=== PATIENT | female | born 1940 | race Caucasian/White ===

== ENCOUNTER → 2017-01-01 | Outpatient (CLI) | payer OTHER | LOC: FIMAGING 15:11 | PROVIDERS: ATTEND Family Medicine | DX: R05 Cough (principal) ==

== ENCOUNTER → 2017-01-24 | Outpatient (CLI) | payer OTHER | LOC: FIMAGING 07:08 | PROVIDERS: ATTEND Family Medicine | DX: N93.8 Other specified abnormal uterine and vaginal bleeding (principal); D25.2 Subserosal leiomyoma of uterus ==

== ENCOUNTER 2017-02-03 15:02 | Emergency (ER) | payer OTHER ==
[2017-02-03] MEDS ORDERED: IBUPROFEN 600 MG TAB PO ONE (15:23)
[2017-02-03 15:24] VITALS: BP 183/87; PULSE 103; RESP 18; TEMP 98.6; O2SAT 97
--- NOTE | 2017-02-03 15:26 | EDPHY ---
H & P Time Seen by Provider: 02/03/17 15:05 HPI/ROS: HPI Sore throat, earache. 76-year-old female by private vehicle. This patient reports she developed a sore throat on . She reports that this persisted through the day and into the evening. She reports that she had continued sore throat yesterday and then developed pain in her left ear yesterday evening followed by a diffuse rash on the left side of her face involving her ear and her left upper cheek bone area. She denies vesicles with the rash. She has not had a fever. No cough. Denies any drainage from the ear. No barotrauma. No difficulty swallowing. No voice changes or difficulty breathing. ROS: Constitutional: No fever, no chills. No weakness. Eyes: No discharge. No changes in vision. ENT: As above. No nasal congestion or rhinorrhea. Respiratory: No cough. No shortness of breath. Cardiac: No chest pain, no palpitations. Gastrointestinal: No abdominal pain, no vomiting, no diarrhea. Genitourinary: No hematuria. No dysuria or increased frequency with urination. Musculoskeletal: No back pain. No neck pain. No myalgias or arthralgias. Skin: As above. Neurological: No headache. No focal weakness or altered sensation. Past medical history: Hypothyroidism. Appendectomy. Primary care physician is Dr. Ghosh. Social history: Here by herself. Nonsmoker. No alcohol. Physical Exam: General Appearance: Alert, no distress. This patient is responding to questions appropriately and in full sentences. This patient appears well- hydrated and well-nourished. Eyes: Pupils equal and round no pallor or injection. No lid edema, erythema or injection. ENT, Mouth: Mucous membranes are moist. The pharyngeal tissues are unremarkable. No edema or swelling. No asymmetry suggestive of abscess. No erythema or exudates. No voice changes. No stridor on auscultation of her neck. The right external auditory canal and tympanic membrane are normal. The left external auditory canal is mildly edematous. The left tympanic membrane is bulging with loss of landmarks a pus pocket behind it and some hemorrhage. I do not appreciate any vesicles. No swelling, tenderness or edema or erythema noted involving the posterior auricular tissues. Respiratory: There are no retractions, lungs are clear to auscultation with good air movement bilaterally. Cardiovascular: Regular rate and rhythm. No tachycardia. No murmur. Neurological: Motor sensory function is grossly intact. Cranial nerves are normal. Gait is normal. Skin: Warm and dry, diffuse faintly erythematous rash involving the left or radicular tissues and maxilla. She is placed baking soda on this for treatment at home. I do not appreciate any vesicles. Musculoskeletal: Neck is supple and nontender. No cervical, submental, submandibular lymphadenopathy. No pain on flexion of the neck. Extremities are symmetrical. All joints range without pain or impingement. Psychiatric: No agitation. No depression. Database: EKG: Imaging: Procedures: Emergency department course: Vital signs reviewed. She is hypertensive and mildly tachycardic with a heart rate of 103 in triage. Temperature is 37.0degrees orally. Differential diagnosis includes herpes zoster oticus, otitis media, otitis externa, early facial cellulitis. Medication allergies reviewed. She was given 500 mg of oral amoxicillin as well as Ciprodex otic drops administered to her left ear. She was also given 600 mg of ibuprofen. 3:50 p.m., patient re-evaluated. No tachycardia. She does feel comfortable going home and can easily return to the emergency department if needed. Plan will be to have her follow up with me tomorrow afternoon for recheck here. I will prescribe her Vicodin for additional pain management as well as the above medications. She is in agreement with this plan and feels comfortable going home. She understands for follow-up here in the emergency department tomorrow for recheck. All of her questions were answered. She was discharged in good condition. Differential Diagnosis: The differential diagnosis on this patient includes but is not limited to acute otitis media, otitis externa, early facial cellulitis, herpes zoster/shingles. Erysipelas, ruptured tympanic membrane, barotrauma, malignant otitis media unlikely. This represents a partial list of diagnoses considered. These considerations are based on history, physical exam, past history, reassessment and diagnostic testing. Smoking Status: Never smoked Constitutional: Initial Vital Signs Temperature (C) 37 C 02/03/17 15:07 Heart Rate 103 H 02/03/17 15:07 Respiratory Rate 18 02/03/17 15:07 Blood Pressure 183/87 H 02/03/17 15:07 O2 Sat (%) 97 02/03/17 15:07 O2 Delivery Mode Room Air Allergies/Adverse Reactions: codeine Allergy (Verified 02/03/17 15:26) hornet venom Allergy (Verified 02/03/17 15:26) Home Medications: Medication Instructions Recorded Prenpro 08/31/15 Synthroid 08/31/15 Amoxicillin Trihydrate 500 mg PO Q6 #28 cap 02/03/17 [Amoxicillin 500mg cap] Medical Decision Making - Data Points Laboratory Results: 02/03/17 02/03/17 Unknown 15:27 Group A Strep Screen NEGATIVE (NEGATIVE) Group A Strep DNA Pending Departure - Departure Disposition: Home, Routine, Self-Care Clinical Impression: Pharyngitis, Otitis media Condition: Good Instructions: Pharyngitis (ED), Otitis Media (ED) Additional Instructions: Read and follow provided instructions. Return to the emergency department tomorrow for recheck as discussed. Take medication as prescribed through entire course of treatment. Ciprodex otic drops: 4 drops to left ear twice daily for 5-7 days. Ibuprofen dosin mg every 6 hours with meals for the next 3 days only. [place]/Percocet dosin-2 every 4-[address] for [address] not drive on this medication. Return to the emergency department immediately for worsening pain, facial swelling, fever, vomiting or other serious concerns. Referrals: NONE *PRIMARY CARE P,. [Primary Care Provider] - As per Instructions Prescriptions: Amoxicillin Trihydrate [Amoxicillin 500mg cap] 500 mg PO Q6 #28 cap
[2017-02-03] MEDS ORDERED: CIPROFLOXACIN HCL/DEXAMETH 7.5 ML OTIC DROPS ONE (15:36)
[2017-02-03] MEDS ORDERED: HYDROCOD/APAP 5/325 PREPACK#6 BTL TAKEHOME ONE (15:38)
[2017-02-03] MEDS ORDERED: CIPROFLOXACIN HCL/DEXAMETH 7.5 ML OTIC DROPS LEFTEAR ONE (15:44)
[2017-02-03] MEDS ORDERED: CIPROFLOXACIN HCL/DEXAMETH 7.5 ML OTIC DROPS LEFTEAR SCH (21:00)
== END 2017-02-03 16:15 | disposition home or self-care (01) ==
LOC: CED 15:02
DX: J02.9 Acute pharyngitis, unspecified (principal); H66.92 Otitis media, unspecified, left ear
CPT/HCPCS: 87880-PO

== ENCOUNTER 2017-02-04 15:28 | Emergency (ER) | payer OTHER ==
[2017-02-04 15:49] VITALS: RESP 16; O2SAT 93
[2017-02-04] MEDS ORDERED: NS 500 ML IV ONE (15:54)
[2017-02-04] MEDS ORDERED: IOPAMIDOL (ISOVUE-300) 100 ML BTL ONE (16:12)
--- NOTE | 2017-02-04 16:13 | EDPHY ---
H & P Time Seen by Provider: 02/04/17 15:39 HPI/ROS: HPI Left ear pain and neck pain. Recheck visit. A 76-year-old female by private vehicle. I saw this patient yesterday. Please see my note from February 03. She returns to the emergency department for recheck by myself as planned. She complains of continued severe left ear pain with radiation into the left lateral neck. She has been taking her prescribed medications which include Ciprodex otic and amoxicillin. She denies fever. She has had no voice changes or difficulty swallowing. She does report the pain in her left lateral neck extending down from her left ear is worse with chewing and swallowing. No difficulty breathing. She reports she has a primary care appointment with her physician Dr. Pinto tomorrow at noon. ROS: Constitutional: No fever, no chills. No weakness. Eyes: No discharge. No changes in vision. ENT: No sore throat. No nasal congestion or rhinorrhea. As above. Respiratory: No cough. No shortness of breath. Cardiac: No chest pain, no palpitations. Gastrointestinal: No abdominal pain, no vomiting, no diarrhea. Genitourinary: No hematuria. No dysuria or increased frequency with urination. Musculoskeletal: No back pain. No neck pain. No myalgias or arthralgias. Skin: No rashes. Neurological: No headache. No focal weakness or altered sensation. Past medical history: Appendectomy, hypothyroidism. Social history: Lives by herself. She is a electroplating technician. Nonsmoker. No alcohol. Physical Exam: General Appearance: Her exam is essentially unchanged from yesterday. Alert, no distress. Talkative. This patient is responding to questions appropriately and in full sentences. This patient appears well-hydrated and well-nourished. Eyes: Pupils equal and round no pallor or injection. No lid edema, erythema or injection. ENT, Mouth: Mucous membranes are moist. The pharyngeal tissues are unremarkable. No edema or swelling. No asymmetry suggestive of abscess. No erythema or exudates. The right external auditory canal and right tympanic membrane are normal. The left external auditory canal is less inflamed than it was yesterday. The left tympanic membrane remains bulging with hemorrhage and pus behind it. Her pain is exacerbated with any manipulation of the auricular tissues. She has a diffuse mildly erythematous rash with some faint and edema involving the helix and the external auricular tissues. This faint erythema also involves the lateral soft tissues of the neck as well as extension into the left lateral facial structures, the maxilla and mandibular area and temporal area of her forehead. No vesicles are noted. Respiratory: There are no retractions, lungs are clear to auscultation with good air movement bilaterally. Cardiovascular: Regular rate and rhythm. No murmur. Gastrointestinal: Abdomen is soft and nontender, no masses, bowel sounds normal. No focal tenderness at McBurney's point. No Owens sign. Neurological: Motor sensory function is grossly intact. Cranial nerves are normal. Gait is normal. Skin: Warm and dry, no rashes. Musculoskeletal: Neck is supple and nontender. Extremities are symmetrical. All joints range without pain or impingement. Psychiatric: No agitation. No depression. Database: EKG: Imaging: Procedures: Emergency department course: Vital signs reviewed. She is afebrile. She is hypertensive that she was yesterday. I discussed imaging. She will be evaluated for malignant otitis externa as well as possible abscess formation with CT imaging, contrast enhanced , of the head and the neck. She endorses this plan. An IV was placed. She was started on IV normal saline with 500 cc to be given over the next hour. Blood cultures have been taken as well as basic blood work including ESR ordered. She will be given Toradol IV pending a normal creatinine. She wants to avoid narcotics. 4:20 p.m., patient re-evaluated. At this time she is declining pain medication. 5:35 p.m., spoke with on-call ENT Dr. Arvizu. Case was discussed in detail with him including laboratory work and imaging. He advises to stay the course with continued oral amoxicillin and Ciprodex drops. He does not advise at this time starting her on Valtrex for possible zoster. He feels as well that this is less likely. The patient does have a follow-up appointment scheduled with her primary care physician Dr. Tracy at noon tomorrow. He recommends that she see Dr. Pinto and if needed he can see her in the office as well if Dr. Burton feels this is necessary. 5:40 p.m., patient re-evaluated. Her is in the room at this time. Results of blood work, CT scan and my conversation with Dr. Arvizu discussed with her and her . Plan for continued therapy as initiated yesterday discussed. She will follow up with Dr. Tracy as above. She is aware that I spoke with Dr. Arvizu and that Dr. Arvizu has her name will be happy to see her if Dr. Tracy and feels this is necessary. Return to emergency department precautions again reviewed with her in detail. All of her questions were answered. She was discharged in good condition. Differential Diagnosis: The differential diagnosis on this patient includes but is not limited to otitis media, otitis externa, malignant otitis externa, zoster, facial cellulitis. This represents a partial list of diagnoses considered. These considerations are based on history, physical exam, past history, reassessment and diagnostic testing. Smoking Status: Never smoked Constitutional: Initial Vital Signs Temperature (C) 37 C 02/04/17 15:45 Heart Rate 90 02/04/17 15:45 Respiratory Rate 16 02/04/17 15:45 Blood Pressure 172/100 H 02/04/17 15:45 O2 Sat (%) 93 02/04/17 15:45 O2 Delivery Mode Room Air Allergies/Adverse Reactions: codeine Allergy (Verified 02/04/17 15:48) hornet venom Allergy (Verified 02/04/17 15:48) Home Medications: Medication Instructions Recorded Prenpro 08/31/15 Synthroid 08/31/15 Amoxicillin Trihydrate 500 mg PO Q6 #28 cap 02/03/17 [Amoxicillin 500mg cap] Medical Decision Making - Diagnostics Imaging Results: Imaging Impressions Head CT 02/04/17 16:04 Impression: Normal brain. No evidence of empyema or aggressive infectious process involving the skull base. Findings discussed with emergency department physician, Joe Perez MD on February 04, 2017 at 5:[address] 02/04/17 16:04 Impression: No aggressive inflammatory process. Specifically, no evidence of osteomyelitis or bony destruction of the skull base. Findings discussed with emergency department physician, Joe Perez MD on February 04, 2017 at 5:20 p.m. - Data Points Laboratory Results: Laboratory Results 02/04/17 16:11 02/04/17 16:11 02/04/17 02/04/17 16:11 16:11 WBC 6.73 10^3/uL 10^3/uL (3.80-9.50) RBC 3.97 10^6/uL L 10^6/uL (4.18-5.33) Hgb 13.0 g/dL g/dL (12.6-16.3) Hct 38.9 % % (38.0-47.0) MCV 98.0 fL fL (81.5-99.8) MCH 32.7 pg pg (27.9-34.1) MCHC 33.4 g/dL g/dL (32.4-36.7) RDW 14.5 % % (11.5-15.2) Plt Count 226 10^3/uL 10^3/uL (150-400) MPV 9.9 fL fL (8.7-11.7) Neut % (Auto) 66.0 % % (39.3-74.2) Lymph % (Auto) 20.5 % % (15.0-45.0) [place] % (Auto) 10.4 % % (4.5-13.0) Eos % (Auto) 1.5 % % (0.6-7.6) Baso % (Auto) 1.3 % % (0.3-1.7) Nucleat RBC Rel Count 0.0 % % (0.0-0.2) Absolute Neuts (auto) 4.44 10^3/uL 10^3/uL (1.70-6.50) Absolute Lymphs (auto) 1.38 10^3/uL 10^3/uL (1.00-3.00) Absolute Monos (auto) 0.70 10^3/uL 10^3/uL (0.30-0.80) Absolute Eos (auto) 0.10 10^3/uL 10^3/uL (0.03-0.40) Absolute Basos (auto) 0.09 10^3/uL 10^3/uL (0.02-0.10) Absolute Nucleated RBC 0.00 10^3/uL 10^3/uL (0-0.01) Immature Gran % 0.3 % % (0.0-1.1) Immature Gran # 0.02 10^3/uL 10^3/uL (0.00-0.10) ESR 17 MM/HR MM/HR (0-30) Sodium 139 mEq/L mEq/L (134-144) Potassium 4.4 mEq/L mEq/L (3.5-5.2) Chloride 102 mEq/L mEq/L (97-110) Carbon Dioxide 24 mEq/l mEq/l (22-31) Anion Gap 13 mEq/L mEq/L (8-16) BUN 14 mg/dL mg/dL (7-23) Creatinine 0.8 mg/dL mg/dL (0.6-1.0) Estimated GFR > 60 Glucose 85 mg/dL mg/dL (70-100) Calcium 9.2 mg/dL mg/dL (8.5-10.4) Medications Given: Discontinued Medications Hydrocodone Bitart/Acetaminophen ([place] 5/325mg Prepack#6) 1 btl TAKEHOME EDNOW ONE Stop: 02/04/17 17:58 Last Admin: 02/04/17 18:02 Dose: 1 btl Hydrocodone Bitart/Acetaminophen ([place] 5/325mg Prepack#6) 1 btl TAKEHOME EDNOW ONE Stop: 02/04/17 17:59 Last Admin: 02/04/17 18:03 Dose: Not Given Amoxicillin (Amoxicillin) 500 mg PO EDNOW ONE PRN Reason: Protocol Stop: 02/04/17 17:02 Last Admin: 02/04/17 17:12 Dose: 500 mg Sodium Chloride (Ns) 500 mls @ 0 mls/hr IV ONCE ONE; Wide Open PRN Reason: Protocol Stop: 02/04/17 15:55 Last Admin: 02/04/17 16:26 Dose: 500 mls Ketorolac Tromethamine (Toradol) 30 mg IVP EDNOW ONE Stop: 02/04/17 16:58 Last Admin: 02/04/17 17:01 Dose: 30 mg Departure - Departure Disposition: Home, Routine, Self-Care Clinical Impression: Otitis media of left ear Condition: Good Instructions: Hydrocodone/Acetaminophen (By mouth), Otitis Media (ED) Additional Instructions: Read and follow provided instructions. Follow-up with your primary care physician Dr. Tracy as scheduled tomorrow at 12 noon. I spoke with ENT physician Dr. Arvizu. He has your name. If doctor Blair feels that you should be seen by him he is happy to see you in his office as well. Continue taking antibiotics as prescribed through entire course of treatment. Ibuprofen dosin mg every 6 hours with meals for the next 3 days only. You can continue taking ibuprofen starting tomorrow morning. [place]/Percocet dosin-2 every 4-6 hours for [address] not drive on this medication. Return to the emergency department for worsening symptoms fever, worsening facial swelling, worsening pain or other serious concerns. Have Dr. Tracy evaluate your blood pressure as well. Referrals: Jacobo Tracy MD [Primary Care Provider] - As per Instructions Luis Arvizu MD [Medical Doctor] - As per Instructions
[2017-02-04 16:19] LABS: % IMMATURE GRANULYOCYTES 0.3 % (0.0-1.1); ABSOLUTE IMMATURE GRANULOCYTES 0.02 10^3/uL (0.00-0.10); ADD DIFF? NO; ADD MORPH? NO; ADD SCAN? NO; ATYPICAL LYMPHOCYTE FLAG 30 (0-99); FRAGMENT RBC FLAG 0 (0-99); HEMATOCRIT 38.9 % (38.0-47.0); LEFT SHIFT FLG 0 (0-99); LIPEMIA HEMOLYSIS FLAG 80 (0-99); MEAN CELL HEMOGLOBIN 32.7 pg (27.9-34.1); MEAN CELL HEMOGLOBIN CONCENTR. 33.4 g/dL (32.4-36.7); MEAN PLATELET VOLUME 9.9 fL (8.7-11.7); PLATELET CLUMPS FLAG 0 (0-99); PLATELET COUNT 226 10^3/uL (150-400); RED BLOOD CELL COUNT 3.97 10^6/uL (4.18-5.33); RED CELL DISTRIBUTION WIDTH 14.5 % (11.5-15.2)
[2017-02-04 16:28] LABS: SEDIMENTATION RATE 17 MM/HR (0-30)
[2017-02-04 16:30] LABS: ANION GAP 13 mEq/L (8-16); CALCIUM 9.2 mg/dL (8.5-10.4); CARBON DIOXIDE 24 mEq/l (22-31); CHLORIDE 102 mEq/L (97-110); CREATININE 0.8 mg/dL (0.6-1.0); GLOMERULAR FILTRATION RATE > 60; GLUCOSE 85 mg/dL (70-100); POTASSIUM 4.4 mEq/L (3.5-5.2); SODIUM 139 mEq/L (134-144)
[2017-02-04] MEDS ORDERED: KETOROLAC 30 MG/1 ML SDV IVP ONE (16:57)
[2017-02-04 17:23] VITALS: BP 175/94; PULSE 80; TEMP 97.5
[2017-02-04] MEDS ORDERED: HYDROCOD/APAP 5/325 PREPACK#6 BTL TAKEHOME ONE ×2 (17:57→17:58)
== END 2017-02-04 18:08 | disposition home or self-care (01) ==
LOC: CED 15:28
DX: H66.92 Otitis media, unspecified, left ear (principal); E86.9 Volume depletion, unspecified
CPT/HCPCS: 70460; 70491; 96361; 96374; 99285; J1885; Q9967; 80048-PO; 85025-PO; 85652-PO

== ENCOUNTER → 2017-07-03 | Outpatient (CLI) | payer OTHER | LOC: FIMAGING 07:28 | PROVIDERS: ATTEND Family Medicine | DX: Z12.31 Encounter for screening mammogram for malignant neoplasm of breast (principal); Z80.3 Family history of malignant neoplasm of breast ==

== ENCOUNTER → 2018-10-15 | Outpatient (CLI) | payer OTHER | LOC: FIMAGING 09:45 ==